=== PATIENT | female | born 1970 | race Caucasian/White ===

== ENCOUNTER 2023-12-01 11:08 | Emergency (ER) | payer BC ==
[2023-12-01] MEDS ORDERED: HYDROcodone/Acetaminophen 5/325 mg Tablet ONE (14:19)
[2023-12-01] MEDS ORDERED: Ketorolac Tromethamine 30 MG (1 mL) VIAL ONE (14:19)
== END 2023-12-01 15:01 | disposition home or self-care (01) ==
LOC: CSHERS 11:08
DX: S30.1XXA Contusion of abdominal wall, initial encounter (principal); S00.531A Contusion of lip, initial encounter; L03.211 Cellulitis of face; I10 Essential (primary) hypertension; E78.5 Hyperlipidemia, unspecified; E05.90 Thyrotoxicosis, unspecified without thyrotoxic crisis or storm; Z55.6 Problems related to health literacy; V89.2XXA Person injured in unspecified motor-vehicle accident, traffic, initial encounter
CPT/HCPCS: 96372; 99283; J1885

== ENCOUNTER 2025-05-05 20:40 | Emergency (ER) | payer BC ==
[2025-05-05] MEDS ORDERED: HYDROmorphone 0.5 MG/0.5 ML SYRINGE ONE (21:34)
[2025-05-05] MEDS ORDERED: diphenhydrAMINE 50 MG/ML VIAL ONE (21:34)
[2025-05-05 22:01] LABS: #Basophils 0.04 10x3/uL (0.0-0.2); #Eosinophils 0.04 10x3/uL (0.0-0.5); #Monocytes 0.79 10x3/uL (0.0-1.1); #Neutrophils 7.49 10x3/uL (1.5-8.4); %Basophils 0.3 % (0.0-2.0); %Eosinophils 0.3 % (0.0-6.0); %Lymphocytes 28.1 % (18.0-47.0); %Monocytes 6.8 % (0.0-10.0); %Neutrophils 64.2 % (40.0-75.0); Hematocrit 38.1 % (34.9-44.5); Hemoglobin 12.9 g/dL (12.0-15.5); Mean Corpuscular Hemoglobin 29.3 pg (27.0-33.0); Mean Corpuscular Volume 86.4 fL (81.6-98.3); Platelet Count 329 10x3/uL (150-450); Red Blood Cell (RBC) Count 4.41 10x6/uL (3.90-5.03); White Blood Cell (WBC) Count 11.68 10x3/uL (3.5-10.5)
[2025-05-05 22:13] LABS: Anion Gap 14 mmol/L (10-20); BUN (Urea Nitrogen) 15 mg/dL (9.8-20.1); Bilirubin, Total 0.3 mg/dL (0.3-1.2); Calc. Creatinine Clearance 0 mL/min (70-130); Calcium 9.6 mg/dL (7.8-10.44); Carbon Dioxide 26 mmol/L (22-29); Chloride 102 mmol/L (98-107); Glucose 151 mg/dL (70-105); Potassium 3.3 mmol/L (3.5-5.1); Sodium 139 mmol/L (136-145)
[2025-05-05 22:14] LABS: ALT (SGPT) 72 U/L (Less than 34); AST (SGOT) 50 U/L (11-34); Albumin 4.2 g/dL (3.1-4.5); Alkaline Phosphatase 104 U/L (40-110); Globulin 4.0 g/dL (2.4-3.5)
[2025-05-06] MEDS ORDERED: VANCOMYCIN 2 GRAM/400 ML BAG 2 GM in Premix 1 BAG IVPB SCH (06:15)
[2025-05-06] MEDS ORDERED: Fluconazole In NaCl,Iso-Osm 400 MG in Premix 1 BAG IVPB SCH (07:00)
[2025-05-06] MEDS ORDERED: diphenhydrAMINE 50 MG/ML VIAL ONE (08:33)
== END 2025-05-06 09:39 | disposition short-term general hospital (02) ==
LOC: CSHERS 20:40
DX: G89.18 Other acute postprocedural pain (principal); J98.2 Interstitial emphysema; J98.4 Other disorders of lung; I10 Essential (primary) hypertension; Z79.899 Other long term (current) drug therapy; Z55.9 Problems related to education and literacy, unspecified; Z75.3 Unavailability and inaccessibility of health-care facilities
CPT/HCPCS: 36416; 71250; 72125; 80053; 85025; J1171; J1200; J1450; J2270; J2543; J3375

== ENCOUNTER 2025-05-18 13:11 | Emergency (ER) | payer BC ==
[2025-05-18 16:39] LABS: #Basophils 0.05 10x3/uL (0.0-0.2); #Eosinophils 0.05 10x3/uL (0.0-0.5); #Monocytes 0.64 10x3/uL (0.0-1.1); #Neutrophils 5.68 10x3/uL (1.5-8.4); %Basophils 0.6 % (0.0-2.0); %Eosinophils 0.6 % (0.0-6.0); %Lymphocytes 27.8 % (18.0-47.0); %Monocytes 7.2 % (0.0-10.0); %Neutrophils 63.6 % (40.0-75.0); Hematocrit 38.0 % (34.9-44.5); Hemoglobin 12.9 g/dL (12.0-15.5); Mean Corpuscular Hemoglobin 29.2 pg (27.0-33.0); Mean Corpuscular Volume 86.0 fL (81.6-98.3); Platelet Count 398 10x3/uL (150-450); Red Blood Cell (RBC) Count 4.42 10x6/uL (3.90-5.03); White Blood Cell (WBC) Count 8.92 10x3/uL (3.5-10.5)
[2025-05-18 16:57] LABS: ALT (SGPT) 73 U/L (Less than 34); AST (SGOT) 51 U/L (11-34); Albumin 3.9 g/dL (3.1-4.5); Alkaline Phosphatase 112 U/L (40-110); Anion Gap 16 mmol/L (10-20); BUN (Urea Nitrogen) 14 mg/dL (9.8-20.1); Bilirubin, Total 0.3 mg/dL (0.3-1.2); Calc. Creatinine Clearance 0 mL/min (70-130); Calcium 9.9 mg/dL (7.8-10.44); Carbon Dioxide 28 mmol/L (22-29); Chloride 103 mmol/L (98-107); Globulin 4.0 g/dL (2.4-3.5); Glucose 100 mg/dL (70-105); Magnesium 1.8 mg/dL (1.6-2.6); Potassium 3.8 mmol/L (3.5-5.1); Sodium 143 mmol/L (136-145)
== END 2025-05-18 17:52 | disposition home or self-care (01) ==
LOC: CSHERS 13:11
DX: Z45.2 Encounter for adjustment and management of vascular access device (principal); I95.9 Hypotension, unspecified; I10 Essential (primary) hypertension; E11.40 Type 2 diabetes mellitus with diabetic neuropathy, unspecified
CPT/HCPCS: 36415; 77001; 80053; 83605; 83735; 85025; 96361; 96365; J1335